=== PATIENT | male | born 1975 | race Two or more races ===

== ENCOUNTER 2020-11-21 14:47 | Emergency (ER) | payer BC ==
[~2020-11-21] VITALS: Ht 175.3 cm; Wt 89.8 kg
[2020-11-21] MEDS ORDERED: CRESTOR10 MG (16:01)
== END 2020-11-21 23:00 | disposition home or self-care (01) ==
LOC: ER 14:47
DX: R10.11 Right upper quadrant pain (principal); R10.13 Epigastric pain; Z03.818 Encounter for observation for suspected exposure to other biological agents ruled out